=== PATIENT | female | born 1935 | race Caucasian/White ===

== ENCOUNTER 2017-08-08 22:41 | Inpatient (IN) ==
[2017-08-08] MEDS ORDERED: ALBUTEROL/IPRATROPIUM 2.5mg-0.5mg/3ml NEB AEROSOL ONE (23:11)
[2017-08-08] MEDS ORDERED: FAMOTIDINE PB 20 MG/50 ML BAG IV ONE (23:11)
--- NOTE | 2017-08-08 23:32 | Emergency Department Report ---
URI/Sore Throat HPI - General Chief Complaint: Nausea/Vomiting/Diarrhea Stated Complaint: Nausea Time Seen by Provider: 08/08/17 23:00 Source: patient Mode of arrival: EMS Limitations: no limitations - History of Present Illness HPI Narrative: Pt presents with a complaint of weakness, abd pain and a cough. Pt saw her PCP on after she developed a cough and was started on Keflex she gives a lengthy history of being concerned about abdominal pain being related to how long she had steeped her tea when taking tylenol. She states she has not had vomiting or diarrhea since but has been feeling progressively worse, she stopped taking both the Keflex and the Tesselon Pearles she was ordered. She reports a fever but never actually took her temperature. Her primary complaint at this time is cough and chest pain MD Complaint: fever, cough, other (abd pain) Duration: constant Severity: severe Severity scale (1-10): >10 Relieving factors: nothing Able to tolerate fluids by mouth: Yes Associated symptoms: fever, chills, cough, chest pain, shortness of breath, abdominal pain, nausea, vomiting, diarrhea - Related Data Home Medications Medication Instructions Recorded Confirmed Ascorbic Acid (Vitamin C) 2,000 mg PO DAILY #0 09/25/13 08/09/17 Bromelains (Bromelain) 500 mg PO DAILY #0 09/25/13 08/09/17 Calcium Carbonate [Calcium] 600 mg PO DAILY #0 09/25/13 08/09/17 ELDERBERRY 400 mg PO DAILY #0 09/25/13 08/09/17 Magnesium Oxide [Magnesium] 250 mg PO DAILY #0 09/25/13 08/09/17 Methylsulfonylmethane (Msm) 1,000 mg PO DAILY #0 09/25/13 08/09/17 Multivitamins (Multivitamin) 1 tab PO DAILY #0 09/25/13 08/09/17 [place]-3 Fatty Acids [[place]-3] 1,000 mg PO DAILY #0 09/25/13 08/09/17 VISION ESSENTIALS 1 tab PO BID #0 09/25/13 08/09/17 Vit B Complex No.10/Folic Acid 400 mcg PO DAILY #0 09/25/13 08/09/17 (B-Complex 100 Tablet Sa) Previous Rx's Medication Instructions Recorded Keflex (cephalexin) 500 mg capsule 500 mg PO TID 10 Days #30 cap 08/05/17 Tessalon Perles (Benzonatate) 100 100 mg PO TID PRN #30 cap 08/05/17 mg capsule Allergies Allergy/AdvReac Type Severity Reaction Status Date / Time levofloxacin Allergy Intermediate NAUSEA, Verified 08/08/17 22:52 VOMITTING, WEAKNESS metronidazole Allergy Intermediate NAUSEA,VOMI Verified 08/08/17 22:52 TTING,WEAKN ESS tramadol AdvReac Intermediate MALAISE Verified 08/08/17 22:52 PENICILLIN Allergy Intermediate NAUSEA,VOMI Uncoded 08/08/17 22:52 TTING,WEAKN ESS Review of Systems All systems: reviewed and negative except as stated Constitutional: Reports: as per HPI Cardiovascular: Reports: as per HPI Respiratory: Reports: as per HPI Gastrointestinal: Reports: as per HPI [facility] Medical History (Last Reviewed 08/05/17 @ 15:16 by PATRICIA Méndze) Arthritis (Chronic Medical) Asthma (Chronic Medical) Breast cancer (Resolved Medical) Pneumonia (Resolved Medical) Polio (Resolved Medical) Surgical History: D and C 1992. Lumpectomy 1992 r/t breast CA Family History: Family History (Last Reviewed 08/05/17 @ 15:16 by PATRICIA Méndez) Mother Cancer Father Atrial fibrillation - Social History Smoking status: Never smoker Physical Exam - Limitations Limitations: no limitations - General General appearance: in no apparent distress - Normal Exams: Head:: Normocephalic without trauma Eyes:: Pupils are PERRLA w/ EOMI Neck:: Full range of motion, without adenopathy Cardiovascular:: Regular rate and rhythm, without murmur or gallop, Pulses 2+ all extremities, capillary refill, <2 seconds all extremities Abdomen:: Bowel sounds positive, soft, non-tender, non-distended Musculoskeletal:: No tenderness, or deformity noted, good range of motion, all extremities Integumentary:: No rashes Neurological:: Patient is alert, and oriented, cranial nerves, motor/sensory/ cerebellar, exams w/o gross deficits, to observation - Respiratory Respiratory exam: Absent: respiratory distress, accessory muscle use - Expanded Respiratory Exam Location: Right: decreased breath sounds, Lower: decreased breath sounds Course Vital Signs Temperature 100.2 F 08/08/17 22:41 Pulse Rate 103 H 08/08/17 22:41 Respiratory Rate 20 08/08/17 22:41 Blood Pressure 150/72 H 08/08/17 22:41 Pulse Oximetry 87 L 08/08/17 22:41 Temperature 100.2 F 08/08/17 22:41 Pulse Rate 116 H 08/09/17 00:00 Respiratory Rate 20 08/09/17 00:00 Blood Pressure 150/62 H 08/09/17 00:00 Pulse Oximetry 93 08/09/17 00:00 Upper Respiratory Infection - MDM Narrative Medical decision making narrative: Lab and xray reviewed and consistent with bibasilar pneumonia. Pt given a duobneb treatment, IV pepcid, and started on IV antibiotics. Dr Gomes contacted for admission. Pt admitted inpatient to medical for further treatment - Differential Diagnosis Differential diagnosis: Likely: upper respiratory infection, viral infection, influenza (pneumonia) - Lab Data Attestation: I reviewed the patient's lab results. Result diagrams: 08/08/17 23:29 08/08/17 23:29 Lab Results 08/08/17 08/08/17 08/08/17 Range/Units 23:29 23:29 23:29 WBC 10.2 (4.5-11.0) T/MM3 RBC 4.76 (4.00-5.20) M/MM3 Hgb 13.9 (12-16) GM/DL Hct 42.0 (36-46) % MCV 88.2 (80-100) UM3 MCH 29.2 (26-34) UUG MCHC 33.1 (31-37) GM/DL RDW Std Deviation 41.9 (36.9-50.2) FL Plt Count 160 (130-400) T/MM3 MPV 11.0 (9.4-12.4) UM3 Immature Gran % (Auto) Not performed Neut % (Auto) Not performed Lymph % (Auto) Not performed Dade % (Auto) Not performed Eos % (Auto) Not performed Baso % (Auto) Not performed Neut # (Auto) Not performed Lymph # (Auto) Not performed Dade # (Auto) Not performed Eos # (Auto) Not performed Baso # (Auto) Not performed Abs Immat Gran (auto) Not performed Neutrophils % (Manual) 85.0 H (33-66) % Band Neutrophils % 3.0 (0-6) % Lymphocytes % (Manual) 5.0 L (23-45) % Monocytes % (Manual) 7.0 (0-9.0) % Neutrophils # (Manual) 8.7 H (1.8-7.7) T/MM3 Band Neutrophils # 0.3 T/MM3 Lymphocytes # (Manual) 0.5 L (1-4.8) T/MM3 Monocytes # (Manual) 0.7 (0-0.8) T/MM3 RBC Morph Comment Normal Turbidity < 20 (0-20) Sodium 132 L (134-144) MEQ/L Potassium 3.5 L (3.6-5) MEQ/L Chloride 98 (98-107) MEQ/L Carbon Dioxide 25 (22-30) MEQ/L Anion Gap 9 (5-15) MEQ/L BUN 8.0 (7-17) MG/DL Creatinine 0.5 L (0.7-1.2) MG/DL GFR Calculation 118 BUN/Creatinine Ratio 16 (6-26) RATIO Glucose 137 H (65-110) MG/DL Calculated Osmolality 255 L (261-280) MOSM/KG Calcium 8.5 (8.4-10.2) MG/DL Total Bilirubin 1.00 (0.20-1.30) MG/DL Icterus Index < 2 (0-7) AST 51 H (14-36) U/L ALT 45 (9-52) U/L Alkaline Phosphatase 101 (38-126) U/L Troponin I < 0.012 (0-0.12) ng/ml Total Protein 6.9 (6.3-8.2) G/DL Albumin 3.5 (3.5-5.0) G/DL Globulin 3.4 (2.4-3.6) G/DL Albumin/Globulin Ratio 1.0 L (1.1-2.2) RATIO Specimen Hemolysis 29 H 31 H (0-25) - Radiology Data Attestation: I reviewed the patient's radiology results. (read per Dr Acevedo) Disposition Clinical Impression: Community acquired pneumonia Qualifiers: Laterality: right Lung location: lower lobe of lung Qualified Code(s): J18.1 - Lobar pneumonia, unspecified organism Disposition: 02 To [facility] Acute Care Condition: Improved Prescriptions: No Action Bromelains (Bromelain) 500 mg PO DAILY #0 Multivitamins (Multivitamin) 1 tab PO DAILY #0 ELDERBERRY 400 mg PO DAILY #0 VISION ESSENTIALS 1 tab PO BID #0 Ascorbic Acid (Vitamin C) 2,000 mg PO DAILY #0 Calcium Carbonate [Calcium] 600 mg PO DAILY #0 Magnesium Oxide [Magnesium] 250 mg PO DAILY #0 Vit B Complex No.10/Folic Acid (B-Complex 100 Tablet Sa) 400 mcg PO DAILY #0 Methylsulfonylmethane (Msm) 1,000 mg PO DAILY #0 [place]-3 Fatty Acids [[place]-3] 1,000 mg PO DAILY #0 Keflex (cephalexin) 500 mg capsule 500 mg PO TID 10 Days #30 cap Tessalon Perles (Benzonatate) 100 mg capsule 100 mg PO TID PRN #30 cap PRN Reason: cough Referrals: Torin Arrieta DO [Family Provider] - Time of Disposition: 00:52 - Seen By: midlevel
[2017-08-08] MEDS: SALINE FLUSH 10ml SYRINGE IVF PRN (23:35)
[2017-08-09] MEDS ORDERED: CEFTRIAXONE (ER USE ONLY) 1 GM in NS 100 ML IV ONE (00:53)
[2017-08-09] MEDS ORDERED: AZITHROMYCIN IV 500 MG in NS 250ml 250 ML IV SCH (01:34)
[2017-08-09 01:54] VITALS: BMI 21.1
[2017-08-09] MEDS: NS 1,000 ML IV SCH ×2 (02:11→17:35)
[2017-08-09] MEDS: IBUPROFEN 400 MG TABLET PO PRN ×2 (03:03→18:46)
--- NOTE | 2017-08-09 03:19 | History & Physical Report ---
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 Patient was seen by her PCP this past and placed on Keflex and Tessalon perles for suspected bronchitis. She then noted some nausea and diarrhea and stopped the keflex. Her cough and malaise and generalized weakness continued to worsen so she came to the ER. Patient has had a poor appetite and intake over the past several days. Patient denies chest pain other than the pleuritic pain associated w/ coughing; denies shortness of air or increased work of breathing; she denies AG, and denies change in bladder function and denies melena and BRBPR. In ER, patient had a CXR and noted to have a RLL infiltrate c/w pneumonia. Patient started on Rocephin and Azithromycin. Patient also rec'd IV Pepcid and IVFs and a DuoNeb treatment in the ER. Patient's WBC = 10.2, Na is 132 and potassium = 3.5. Patient's troponin reported as 0. Patient febrile in ER at 100.2F Patient to be admitted to the Hospitalist service for further evaluation and management with the diagnosis of RLL Pneumonia. Review of Systems All systems PM: 10-point ROS was reviewed, no additional remarkable complaints except PFSH Patient Stated Medical History Asthma Yes: Thinks she's outgrown it Pneumonia Yes Gastroesophageal Reflux Yes Disease Hx Urinary Tract Infection Yes Osteoarthritis Yes Other Musculoskeletal Yes: left leg pain due to polio 1947 Chemotherapy Yes: breast cancer 1984 Clinic Medical History (Last Reviewed 08/05/17 @ 15:16 by PATRICIA Méndez) Community acquired pneumonia (Acute Medical) Arthritis (Chronic Medical) Asthma (Chronic Medical) Breast cancer (Resolved Medical) Pneumonia (Resolved Medical) Polio (Resolved Medical) Surgical History: D and C 1992. Lumpectomy 1992 r/t breast CA Family History: Family History (Last Reviewed 08/05/17 @ 15:16 by PATRICIA Méndez) Mother Cancer Father Atrial fibrillation - Social History Smoking status: Never smoker Medications Home Medications Medication Instructions Recorded Confirmed Type Ascorbic Acid (Vitamin C) 2,000 mg PO DAILY #0 09/25/13 08/09/17 History Bromelains (Bromelain) 500 mg PO DAILY #0 09/25/13 08/09/17 History Calcium Carbonate [Calcium] 600 mg PO DAILY #0 09/25/13 08/09/17 History ELDERBERRY 400 mg PO DAILY #0 09/25/13 08/09/17 History Magnesium Oxide [Magnesium] 250 mg PO DAILY #0 09/25/13 08/09/17 History Methylsulfonylmethane (Msm) 1,000 mg PO DAILY #0 09/25/13 08/09/17 History Multivitamins (Multivitamin) 1 tab PO DAILY #0 09/25/13 08/09/17 History [place]-3 Fatty Acids [[place]-3] 1,000 mg PO DAILY #0 09/25/13 08/09/17 History VISION ESSENTIALS 1 tab PO BID #0 09/25/13 08/09/17 History Vit B Complex No.10/Folic Acid 400 mcg PO DAILY #0 09/25/13 08/09/17 History (B-Complex 100 Tablet Sa) Allergies Allergy/AdvReac Type Severity Reaction Status Date / Time levofloxacin Allergy Intermediate NAUSEA, Verified 08/08/17 22:52 VOMITTING, WEAKNESS metronidazole Allergy Intermediate NAUSEA,VOMI Verified 08/08/17 22:52 TTING,WEAKN ESS cephalexin [From Keflex] AdvReac Severe upset Verified 08/09/17 09:11 stomach tramadol AdvReac Intermediate MALAISE Verified 08/08/17 22:52 PENICILLIN Allergy Intermediate NAUSEA,VOMI Uncoded 08/08/17 22:52 TTING,WEAKN ESS Exam Vital Signs: Temperature 98.5 F 08/09/17 01:41 Pulse Rate 106 H 08/09/17 01:41 Respiratory Rate 24 08/09/17 01:41 Blood Pressure 154/68 H 08/09/17 01:41 Pulse Oximetry 91 08/09/17 01:41 Height/Weight/BMI: Height 1.63 m Weight 55.8 kg Body Mass Index 21.1 - Constitutional Present: no acute distress, well nourished, well developed Comments: Appears tired, mildly ill - Routine HEENT Exam Head: Present: normocephalic, atraumatic Eye: Present: EOMI, PERRL. Absent: conjunctival icterus, scleral injection ENT: Present: mucous membranes dry - Routine Neck Exam Present: supple, full ROM. Absent: JVD - Routine Respiratory Exam Present: rales, rhonchi. Absent: accessory muscle use, dyspnea, prolonged expiratory phase, respiratory distress, stridor, wheezes Comments: Patient has RLL rales and rhonchi; good effort and symmetrical chest rise; deep breathing did elicit coughing episodes which resulted in chest wall discomfort, especially on the right side of the rib cage - Routine Cardiovascular Exam Present: RRR, S1, S2 - Routine Abdominal Exam Present: soft, normoactive bowel sounds, non distended, non tender - Routine Extremities Exam Absent: cyanosis, clubbing, edema - Routine Neurological Exam Present: alert, oriented X3 - Routine Psychiatric Exam Present: normal affect, normal thought process, cooperative, good insight, good judgment Results - Labs CBC & Chem 7: 08/09/17 06:52 08/09/17 06:52 Assessment and Plan Assessment and Plan: Assessment 1) Acute RLL Pneumonia 2) Acute Dehydration w/ decreased appetite and po intake 3) Acute Mild Hyponatremia 4) Acute Pleuritic chest wall pain w/ coughing 5) H/o Asthma - remote history - has been asymptomatic 6) Osteoarthritis 7) Post-polio syndrome left LE 8) GERD 9) H/o Breast Ca 10) H/o Pneumonia Plan: Admit to Hospitalist service Rocephin and Azithromycin Neb Albuterol q 4 hours prn Tussionex 5mL po q 12 hours prn Protonix 40mg po once daily ac breakfast Labs in AM Regular diet SCDs IVfs that of NS at 75 cc/hour Blood Cx pending Sputum culture ordered - pending prn acetaminophen and ibuprofen as directed Supportive care Hold home meds - vitamin and other supplements Continuous Pulse Oximetry I discussed the plan of care w/ Yumi and she verbalized understanding. Her daughter Marshall provided supplemental history. Dr. Gomes's note reviewed. Mrs. Mora interviewed and examined. CC: Feels awful, cough HPI: Mrs. Mora is an 81-year-old female with one-week history of cough with minimal sputum production accompanied by pleuritic pain, low-grade fever and intermittent chills. She reports sweats last night after presenting to the hospital but had not had sweats prior to that time. She denies having dyspnea. She was seen by Dr. Arrieta 4 days prior to admission and started on Keflex and Tessalon Perles for probable bronchitis but subsequently developed severe burning in her stomach and headache and discontinued medications 2 days ago. Patient additionally reports developing severe diarrhea one day after starting antibiotics but thinks it may have been from taking Tylenol on an empty stomach during the middle of the night. Her daughter reports that GI symptoms were starting prior to initiating antibiotics. The patient denies hemoptysis and reports that the minor amount of sputum she has been coughing up has been clear or slightly milky in color. Due to ongoing symptoms she presented to the emergency room yesterday day evening her temperature was 100.2, oxygen saturation 87% on 2 L O2, and chest x-ray revealed bilateral lower lobe infiltrates. She was admitted for further management due to failed outpatient therapy and hypoxia. PH/SH/FH: agree with that recorded above with additional history of post polio syndrome. FH-mother of multiple myeloma, 3 sisters and paternal grandfather had atrial fibrillation in addition to her father, father and grandfather also had coronary artery disease. SH-no history alcohol, tobacco, or illicit drug use. Patient has a DO NOT RESUSCITATE order and her daughter Marshall has DPOA. ROS: 10 point review completed with patient/daughter describing left leg pain chronically which is increased in the past week with the patient has been sitting primarily. Pain starts in the posterior left hip and radiates down the lateral left leg into the calf area there is occasional numbness but not consistently. Patient reports her left leg is generally weaker than the right and that pain is severe when she stands still and better when she moves around. 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 She denied any difficulty using her hands/ legs at the time and the visual symptoms lasted only a brief period of time. Remainder of ROS is negative or as per history of present illness EXAM: General-NAD, alert, cooperative; 96.7, 84, 93% on 3 L HEENT-PERRL, EOMI without nystagmus, conjunctiva clear, sclera anicteric, conjugate gaze, facial structures symmetric, oropharynx clear, neck supple and without adenopathy Lungs-respirations nonlabored, fair airflow, faint crackles at the right base, no wheezing Cardiac-regular rhythm, S1 and S2 Abd-soft, nontender, without palpable mass, bowel sounds present Ext-without edema or clubbing Skin-without generalized rash or wounds Musculoskeletal-minor tenderness to palpation over the left greater trochanter Neuro-cranial nerves 3-12 intact, sensation intact to light touch 4 extremities , normal motor tone, no tremor present, proximal/distal power grossly normal upper and lower extremities bilaterally-I don't detect left lower extremity weakness at this time. Psych-calm, cooperative DATA: Chest x-ray reviewed by myself demonstrating probable left lower lobe infiltrate, questionable left basilar infiltrate versus atelectasis. WBC 10.9 with 7% bands; sodium 132-137, creatinine 0.6, liver enzymes unremarkable other than AST 51 A/P: RLL pneumonia Dehydration, diarrhea [employer] Pleuritic chest pain Hyponatremia, POA-resolved, c/w dehydration LLE radicular pain Postpolio syndrome Osteoarthritis h/o breast cancer and asthma, GERD Continue Rocephin/azithromycin initiated for community-acquired pneumonia. Azithromycin converted to oral administration. Sputum culture/blood cultures pending. Check respiratory viral panel. Continue IV fluids initiated overnight. Tolerating regular diet this morning. Plain films lumbar spine, PT/OT consult. DO NOT RESUSCITATE order confirmed with DPOA, status clarified in medical chart. Patient will return to the care of Dr. Arrieta when medically stabilized. All records reviewed. DVT Prophylaxis: SCD's GI Prophylaxis: Protonix Resuscitation Status: Full Code Hospital Course Summary Disclaimer: The visit summary below is not to be considered part of the above Progress Note. Hospital Course: 08/09/17 Admitted with pneumonia which failed outpatient therapy. Continue Rocephin/azithromycin initiated for community-acquired pneumonia. Azithromycin converted to oral administration. Sputum culture/blood cultures pending. Check respiratory viral panel. Continue IV fluids initiated overnight. Tolerating regular diet this morning. Plain films lumbar spine, PT/OT consult. DO NOT RESUSCITATE order confirmed with DPOA, status clarified in medical chart. Patient will return to the care of Dr. Arrieta when medically stabilized.
[2017-08-09] MEDS: PANTOPRAZOLE 40 MG TABLET PO SCH (07:34)
--- NOTE | 2017-08-09 08:19 | XRay Report ---
Indication: cough PROCEDURE: XR chest 1V: Encounter: Initial Comparison: 09/25/2013 Findings: Is bibasilar inferomedial opacity without definite pleural effusion. Heart size is normal. There is moderate overlying EKG lead artifact and other tube artifact. No subdiaphragmatic free air. There is minimal scoliosis of the thoracolumbar spine. Impression: Bibasilar inferomedial pulmonary opacity possibly representing atelectasis and/or pneumonia. Follow-up to resolution is recommended to exclude underlying neoplasm. .
[2017-08-09] MEDS: ACETAMINOPHEN 325 MG TABLET PO PRN (09:39)
[2017-08-09] MEDS: CALCIUM CARBONATE 600 MG TABLET PO SCH (09:41)
[2017-08-09] MEDS: ALBUTEROL 2.5mg/3ml (0.083%) NEB AEROSOL PRN ×3 (09:59→20:37)
[2017-08-09] MEDS: CEFTRIAXONE 1 G in NS 100 ML IV SCH (12:19)
[2017-08-09] MEDS ORDERED: INFLUENZA VAC High Dose 2017-18 (Fluzone HD*) (>=65yo) 0.5ml IM ONE (13:10)
[2017-08-09] MEDS ORDERED: PNEUMOCOCCAL 13 VACCINE 0.5ml INJECTION IM ONE (13:12)
--- NOTE | 2017-08-09 15:31 | XRay Report ---
Indication: left radicular pain, post polio syndrome PROCEDURE: XR lumbar spine 2-3V: Encounter: Initial Comparison: None. Findings: There is moderate S-shaped scoliotic deformity of the thoracolumbar spine with levo convexity of the thoracolumbar junction. There is moderate degenerative disc disease at multiple levels. The vertebral body heights and the alignments appear relatively well-preserved. No soft tissue mass or abnormal calcification. Impression: Moderate degenerative disc disease and moderate scoliosis. No definite acute fracture or subluxation. .
[2017-08-10] MEDS: ACETAMINOPHEN 325 MG TABLET PO PRN (00:53)
[2017-08-10] MEDS: PANTOPRAZOLE 40 MG TABLET PO SCH (06:03)
[2017-08-10] MEDS: NS 1,000 ML IV SCH (06:03)
[2017-08-10] MEDS: AZITHROMYCIN 250 MG TABLET PO SCH (06:03)
[2017-08-10] MEDS: IBUPROFEN 400 MG TABLET PO PRN (07:08)
[2017-08-10] MEDS ORDERED: AZITHROMYCIN IV 500 MG in NS 250ml 250 ML IV SCH (09:00)
[2017-08-10] MEDS: CALCIUM CARBONATE 600 MG TABLET PO SCH (09:07)
[2017-08-10] MEDS: CEFTRIAXONE 1 G in NS 100 ML IV SCH (09:07)
--- NOTE | 2017-08-10 14:03 | Progress Note ---
<Sharyn Narayanan - Last Filed: 08/10/17 15:17> - Date 08/10/17 Subjective: Patient is seen in her room today. She has family present. She feels she is doing better. She has been up to walk with therapy and felt very fatigued after that. She has been weaned off her O2. Mild dyspnea. Coughing spells - usually at night. No fever or chills. Curious about her xray results in re: to her L leg pain. Objective Vital signs: Temperature 96.0 F L 08/10/17 12:06 Pulse Rate 78 08/10/17 12:06 Respiratory Rate 20 08/10/17 12:06 Blood Pressure 146/71 H 08/10/17 12:06 Pulse Oximetry 96 08/10/17 12:06 Height/Weight/BMI: Height 1.63 m Weight 59.3 kg Body Mass Index 21.1 - Constitutional Present: no acute distress, well nourished, well developed - Routine Respiratory Exam Comments: Mostly clear, few coarse sounds heard RML and RLL. - Routine Cardiovascular Exam Present: RRR. Absent: murmur - Routine Abdominal Exam Present: soft, normoactive bowel sounds, non distended. Absent: tenderness - Routine Extremities Exam Present: no edema, normal capillary refill - Routine Skin Exam Present: dry, warm - Routine Neurological Exam Present: alert, oriented X3 - Routine Lymphatic Exam Lymphatic: Absent: adenopathy - Routine Psychiatric Exam Present: normal affect, cooperative Results - Labs CBC & Chem 7: 08/10/17 05:15 08/10/17 05:15 Labs: Laboratory Tests 08/10/17 09:39 Influenza Type B (PCR) Detected Microbiology Results: Microbiology 08/09/17 02:51 Sputum, Expectorated Gram Stain - Final 08/09/17 02:51 Sputum, Expectorated Sputum Culture - Preliminary Normal Respiratory Ruba Present - Imaging and Cardiology lumbar spine Additional comments: Date of Exam: 08/09/17 Indication: left radicular pain, post polio syndrome PROCEDURE: XR lumbar spine 2-3V: Findings: There is moderate S-shaped scoliotic deformity of the thoracolumbar spine with levo convexity of the thoracolumbar junction. There is moderate degenerative disc disease at multiple levels. The vertebral body heights and the alignments appear relatively well-preserved. No soft tissue mass or abnormal calcification. Impression: Moderate degenerative disc disease and moderate scoliosis. No definite acute fracture or subluxation. 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 She declines Tamiflu as she has significant s.e.'s (GI) to most meds. Continue Azithromycin and consider DC of Rocephin. Repeat CXR tomorrow. Sputum culture - prelim shows normal respiratory ruba. Blood cultures pending. KCl 40 mEq given x 1 for hypokalemia. BMP tomorrow. Reviewed lumbar spine xray. Recommend OP PT and f-u with Dr. Arrieta. DO NOT RESUSCITATE order confirmed with DPOA, status clarified in medical chart. Patient will return to the care of Dr. Arrieta when medically stabilized. Hospital Course Summary Disclaimer: The visit summary below is not to be considered part of the above Progress Note. Hospital Course: 08/09/17 Admitted with pneumonia which failed outpatient therapy. Continue Rocephin/azithromycin initiated for community-acquired pneumonia. Azithromycin converted to oral administration. Sputum culture/blood cultures pending. Check respiratory viral panel. Continue IV fluids initiated overnight. Tolerating regular diet this morning. Plain films lumbar spine, PT/OT consult. DO NOT RESUSCITATE order confirmed with DPOA, status clarified in medical chart. Patient will return to the care of Dr. Arrieta when medically stabilized. 08/10/17 + influenza B. Discussed Tamiflu treatment with patient. She declines Tamiflu as she has significant s.e.'s (GI) to most meds. Continue Azithromycin and consider DC of Rocephin. Sputum culture - prelim shows normal respiratory ruba. Blood cultures pending. KCl 40 mEq given x 1 for hypokalemia. Reviewed lumbar spine xray. Recommend OP PT and f-u with Dr. Arrieta. DO NOT RESUSCITATE order confirmed with DPOA, status clarified in medical chart. Patient will return to the care of Dr. Arrieta when medically stabilized. <Maile Mendes - Last Filed: 08/10/17 18:41> - Date 12/05/17 Objective Vital signs: Results - Labs CBC & Chem 7: 08/10/17 05:15 08/10/17 05:15 Microbiology Results: Microbiology 08/09/17 02:51 Sputum, Expectorated Gram Stain - Final 08/09/17 02:51 Sputum, Expectorated Sputum Culture - Preliminary Normal Respiratory Ruba Present Assessment and Plan Assessment and Plan: I have independently evaluated and examined this patient. I reviewed the chart, the patient's history, and the SWEEPER BRUSH MAKER MACHINE/PA's documented findings as above. We discussed and formulated the assessment and plan as above with additions as below: Mrs. Mora was seen with multiple family members at bedside. She continues to have occasional cough, often coming in spells with minimal sputum production. She reports that she was only able to cough up a little thin liquid yesterday for them to send to the lab. Her weakness has improved and she feels like she is walking better already (ambulated 300 feet with PT today). Denies significant myalgias/arthralgias or high-grade fevers prior to admission. NAD, alert Respirations nonlabored, good airflow but inspiration triggers repetitive cough , right basilar crackles LS-spine films reviewed with patient and family-mild scoliosis and DDD especially at L3-L4 Influenza B positive although clinical course is not highly suspicious for influenza, will obtain confirmatory testing. Discussed rationale for use of Tamiflu in hospitalized patient. Continue current antibiotics pending 48 hour blood cultures. Doing well. DVT Prophylaxis: SCD's Resuscitation Status: Do Not Resuscitate Hospital Course Summary Disclaimer: The visit summary below is not to be considered part of the above Progress Note.
[2017-08-10] MEDS: ALBUTEROL 2.5mg/3ml (0.083%) NEB AEROSOL SCH ×2 (15:02→19:25)
[2017-08-10] MEDS ORDERED: MENTHOL COUGH DROPS (RICOLA) MM PRN (16:47)
[2017-08-11] MEDS: IBUPROFEN 400 MG TABLET PO PRN (03:54)
[2017-08-11] MEDS: PANTOPRAZOLE 40 MG TABLET PO SCH (05:59)
[2017-08-11] MEDS: AZITHROMYCIN 250 MG TABLET PO SCH (05:59)
[2017-08-11] MEDS: SALINE FLUSH 10ml SYRINGE IVF PRN ×2 (05:59→21:25)
[2017-08-11] MEDS: ALBUTEROL 2.5mg/3ml (0.083%) NEB AEROSOL SCH ×3 (07:37→19:18)
--- NOTE | 2017-08-11 09:07 | XRay Report ---
INDICATION: influenza, pneumonia PROCEDURE: CHEST 2-VIEWS UPRIGHT (PA & LAT) Encounter: Initial COMPARISON: August 08, 2017 FINDINGS: Airspace consolidation in the right lower lobe is not significantly changed. Emphysema. Small pleural effusions, right greater than left. No pneumothorax. Heart size and mediastinal contours are stable. Pulmonary vascularity is unchanged. Impression: Continued evidence of a right lower lobe pneumonia or aspiration. No significant change. .
[2017-08-11] MEDS: CALCIUM CARBONATE 600 MG TABLET PO SCH (09:26)
[2017-08-11] MEDS: ACETAMINOPHEN 325 MG TABLET PO PRN ×2 (09:26→21:24)
[2017-08-11] MEDS: CEFTRIAXONE 1 G in NS 100 ML IV SCH (10:30)
--- NOTE | 2017-08-11 13:43 | Progress Note ---
<Sharyn Narayanan L - Last Filed: 08/11/17 13:40> - Date 08/11/17 Subjective: Patient seen in follow-up of influenza. She states she feels "rotten" today. She had a good day yesterday but today feels exhausted and much worse. No n/v. She wonders if her sxs are r/t to Tamiflu. She typically doesn't tolerate medications very well and thinks this could be the cause of how she feels today. She would prefer not to take anymore Tamiflu. She took a walk in the halls last evening and states she felt that wore her out as well. She is not complaining of a fever or chills. No chest pain, but is requiring a small amount of oxygen again today, whereas she was not requiring oxygen yesterday. Appetite is fair. She is complaining of some pain in her left leg again today. Tylenol seems to help. Objective Vital signs: Temperature 96.5 F L 08/11/17 12:23 Pulse Rate 86 08/11/17 12:23 Respiratory Rate 18 08/11/17 12:23 Blood Pressure 140/69 H 08/11/17 12:23 Pulse Oximetry 93 08/11/17 12:23 Height/Weight/BMI: Height 1.63 m Weight 57.9 kg Body Mass Index 21.1 - Constitutional Present: no acute distress, well nourished, well developed - Routine HEENT Exam Head: Present: normocephalic - Routine Respiratory Exam Present: decreased breath sounds (right lower lobe), CTA bilaterally. Absent: wheezes - Routine Cardiovascular Exam Present: RRR. Absent: murmur - Routine Abdominal Exam Present: soft, normoactive bowel sounds, non distended. Absent: tenderness - Routine Extremities Exam Present: no edema, normal capillary refill - Routine Skin Exam Present: dry, warm - Routine Neurological Exam Present: alert, oriented X3 - Routine Lymphatic Exam Lymphatic: Absent: adenopathy - Routine Psychiatric Exam Present: normal affect, cooperative Results - Labs CBC & Chem 7: 08/10/17 05:15 08/11/17 04:12 Labs: Repeat influenza testing confirmed positive influenza B Microbiology Results: Microbiology 08/09/17 02:51 Sputum, Expectorated Gram Stain - Final 08/09/17 02:51 Sputum, Expectorated Sputum Culture - Preliminary Normal Respiratory Ruba Present - Imaging and Cardiology Chest x-ray Additional comments: 08/11/17 Impression: Continued evidence of a right lower lobe pneumonia or aspiration. No significant change. 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 Given her mindset that she is going to have adverse effects from medication, the benefit of Tamiflu will likely not outweigh the risk at this time. Continue Azithromycin and consider DC of Rocephin. 48 hour blood culture negative. Given the patient feels weaker today and is back on oxygen, will have her continue to work with PT and monitor oxygen levels. Repeat labs in a.m. Hopefully DC home tomorrow. Hospital Course Summary Disclaimer: The visit summary below is not to be considered part of the above Progress Note. Hospital Course: 08/09/17 Admitted with pneumonia which failed outpatient therapy. Continue Rocephin/azithromycin initiated for community-acquired pneumonia. Azithromycin converted to oral administration. Sputum culture/blood cultures pending. Check respiratory viral panel. Continue IV fluids initiated overnight. Tolerating regular diet this morning. Plain films lumbar spine, PT/OT consult. DO NOT RESUSCITATE order confirmed with DPOA, status clarified in medical chart. Patient will return to the care of Dr. Arrieta when medically stabilized. 08/10/17 + influenza B. Discussed Tamiflu treatment with patient. She declines Tamiflu as she has significant s.e.'s (GI) to most meds. Continue Azithromycin and consider DC of Rocephin. Sputum culture - prelim shows normal respiratory ruba. Blood cultures pending. KCl 40 mEq given x 1 for hypokalemia. Reviewed lumbar spine xray. Recommend OP PT and f-u with Dr. Arrieta. DO NOT RESUSCITATE order confirmed with DPOA, status clarified in medical chart. Patient will return to the care of Dr. Arrieta when medically stabilized. 08/11/17 13:53 Patient declines further use of Tamiflu. Given her mindset that she is going to have adverse effects from medication, the benefit of Tamiflu will likely not outweigh the risk at this time. Continue Azithromycin and consider DC of Rocephin. 48 hour blood culture negative. Given the patient feels weaker today and is back on oxygen, will have her continue to work with PT and monitor oxygen levels. Repeat labs in a.m. Hopefully DC home tomorrow. <Maile Mendes - Last Filed: 08/11/17 17:35> - Date 08/11/17 Results - Labs CBC & Chem 7: 08/10/17 05:15 08/11/17 04:12 Assessment and Plan (1) Influenza B Current visit: Yes Status: Acute (2) Influenzal bronchopneumonia Current visit: Yes Status: Acute Assessment and Plan: I have independently evaluated and examined this patient. I reviewed the chart, the patient's history, and the FILTER PRESS TENDER/PA's documented findings as above. We discussed and formulated the assessment and plan as above with additions as below: Mrs. Mora reports that she's worn out today. She describes her heart rate increasing 222 and oxygen decreasing to 87 or 88% overnight (nothing documented ) although supplemental oxygen was initiated at some point overnight and has subsequently been titrated off. She continues to have occasional cough without sputum production. She declines Tamiflu as noted above. Afebrile, drowsy Respirations nonlabored, good airflow, no wheezing, crackles at the left base Regular cardiac rhythm. Ambulatory oximetry was obtained on room air without desaturation, lowest O2 saturation wall ambulating today was 92%. Confirmatory test positive for influenza B. Will obtain overnight oximetry tonight on room air to determine if there is need for home oxygen-history of asthma. Chest x-ray with right lower lobe infiltrate (films reviewed by myself) and small pleural effusions. Consistent with influenza bronchopneumonia. Sputum does not suggest a secondary staph infection. Patient has had Rocephin for 3 days-discontinue but will continue azithromycin as a mucolytic as patient is tolerating this well. Anticipate discharge home tomorrow. DVT Prophylaxis: SCD's Resuscitation Status: Do Not Resuscitate Hospital Course Summary Disclaimer: The visit summary below is not to be considered part of the above Progress Note.
[2017-08-11] MEDS ORDERED: METOCLOPRAMIDE 5mg TABLET PO PRN (18:18)
[2017-08-12] MEDS: HYDROCODONE/CHLORPHENIRAMINE ER ORAL LIQ 5ml PO PRN ×2 (01:39→21:20)
[2017-08-12] MEDS: IBUPROFEN 400 MG TABLET PO PRN (04:36)
[2017-08-12] MEDS: AZITHROMYCIN 250 MG TABLET PO SCH (06:22)
[2017-08-12] MEDS: PANTOPRAZOLE 40 MG TABLET PO SCH (06:23)
[2017-08-12] MEDS: CALCIUM CARBONATE 600 MG TABLET PO SCH (08:15)
[2017-08-12] MEDS: ALBUTEROL 2.5mg/3ml (0.083%) NEB AEROSOL SCH ×3 (09:38→16:22)
[2017-08-12] MEDS: ACETAMINOPHEN 325 MG TABLET PO PRN (11:21)
--- NOTE | 2017-08-12 13:31 | Progress Note ---
<Sharyn Narayanan L - Last Filed: 08/12/17 13:19> - Date 08/12/17 Subjective: Patient is seen today lying in bed. She reports she feels very fatigued. She felt better last evening and was able to walk. After she took Tamiflu, she felt nauseous and exhausted. She is not short of breath. Her overnight oximetry was normal. She doesn't have much of an appetite but she is making herself eat. Her biggest concern is that she feels so fatigued she doesn't feel that she would be able to make it at home with just her 's help. She and her family are interested in looking into IRU. Objective Vital signs: Temperature 96.3 F L 08/12/17 11:22 Pulse Rate 95 08/12/17 11:22 Respiratory Rate 20 08/12/17 11:22 Blood Pressure 122/60 08/12/17 11:22 Pulse Oximetry 94 08/12/17 12:44 Height/Weight/BMI: Height 1.63 m Weight 55.9 kg Body Mass Index 21.1 - Constitutional Present: no acute distress, well nourished, well developed - Routine HEENT Exam Head: Present: normocephalic, atraumatic - Routine Respiratory Exam Present: CTA bilaterally. Absent: wheezes - Routine Cardiovascular Exam Present: RRR. Absent: murmur - Routine Abdominal Exam Present: soft, normoactive bowel sounds, non distended. Absent: tenderness - Routine Extremities Exam Present: no edema, normal capillary refill - Routine Skin Exam Present: dry, warm - Routine Neurological Exam Present: alert, moving all extremities - Routine Lymphatic Exam Lymphatic: Absent: adenopathy - Routine Psychiatric Exam Present: normal affect, cooperative Results - Labs CBC & Chem 7: 08/12/17 04:26 08/12/17 04:26 Microbiology Results: Microbiology 08/09/17 02:51 Sputum, Expectorated Gram Stain - Final 08/09/17 02:51 Sputum, Expectorated Sputum Culture - Preliminary Normal Respiratory Ruba Present Assessment and Plan (1) Influenza B Current visit: Yes Status: Acute (2) Influenzal bronchopneumonia Current visit: Yes Status: Acute Assessment and Plan: Positive influenza B Generalized weakness RLL pneumonia 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 This is likely the main cause of her sxs. Continue Azithromycin. Last day is 08/14. Will have PT/OT work with her for strengthening . IRU screen placed as she doesn 't feel strong enough to make it at home on her own. Overnight oximetry was normal. Will wait to give her flu and pneumonia vaccines until her f-u appointment with her PCP given her current condition. . Hospital Course Summary Disclaimer: The visit summary below is not to be considered part of the above Progress Note. Hospital Course: 08/09/17 Admitted with pneumonia which failed outpatient therapy. Continue Rocephin/azithromycin initiated for community-acquired pneumonia. Azithromycin converted to oral administration. Sputum culture/blood cultures pending. Check respiratory viral panel. Continue IV fluids initiated overnight. Tolerating regular diet this morning. Plain films lumbar spine, PT/OT consult. DO NOT RESUSCITATE order confirmed with DPOA, status clarified in medical chart. Patient will return to the care of Dr. Arrieta when medically stabilized. 08/10/17 + influenza B. Discussed Tamiflu treatment with patient. She declines Tamiflu as she has significant s.e.'s (GI) to most meds. Continue Azithromycin and consider DC of Rocephin. Sputum culture - prelim shows normal respiratory ruba. Blood cultures pending. KCl 40 mEq given x 1 for hypokalemia. Reviewed lumbar spine xray. Recommend OP PT and f-u with Dr. Arrieta. DO NOT RESUSCITATE order confirmed with DPOA, status clarified in medical chart. Patient will return to the care of Dr. Arrieta when medically stabilized. 08/11/17 13:53 Patient declines further use of Tamiflu. Given her mindset that she is going to have adverse effects from medication, the benefit of Tamiflu will likely not outweigh the risk at this time. Continue Azithromycin and consider DC of Rocephin. 48 hour blood culture negative. Given the patient feels weaker today and is back on oxygen, will have her continue to work with PT and monitor oxygen levels. Repeat labs in a.m. Hopefully DC home tomorrow. 08/12/17 13:44 D/C Tamiflu. This is likely the main cause of her sxs. Continue Azithromycin. Last day is 08/14. Will have PT/OT work with her for strengthening . IRU screen placed as she doesn 't feel strong enough to make it at home on her own. Overnight oximetry was normal. Will wait to give her flu and pneumonia vaccines until her f-u appointment with her PCP given her current condition. <Skylar Ramires M - Last Filed: 08/12/17 16:48> - Date 08/12/17 Objective Vital signs: Temperature 96.8 F 08/12/17 15:43 Pulse Rate 93 08/12/17 15:43 Respiratory Rate 18 08/12/17 16:23 Blood Pressure 116/65 08/12/17 15:43 Pulse Oximetry 93 08/12/17 15:43 Height/Weight/BMI: Height 5 ft 4 in Weight 55.9 kg Body Mass Index 21.1 Results - Labs CBC & Chem 7: 08/12/17 04:26 08/12/17 04:26 Microbiology Results: Microbiology 08/09/17 02:51 Sputum, Expectorated Gram Stain - Final 08/09/17 02:51 Sputum, Expectorated Sputum Culture - Final Haemophilus influenzae Normal Respiratory Ruba Assessment and Plan (1) Influenza B Current visit: Yes Status: Acute (2) Influenzal bronchopneumonia Current visit: Yes Status: Acute Assessment and Plan: Patient was seen and examined. Please see above note written by midlevel who saw the patient today. I agree with the assessment and plan. Patient still feels very weak and is hesitant to go home as she hasn't eaten much or been up walking around. She lives at home with her . Yesterday, she had an episode of severe nausea that she felt was due to the antibiotic we gave her. This is improved and she did hold down some breakfast. Gen: Alert and oriented X 3. Appears ill. CV: RRR Lungs: CTAB Ext: no c/c/e Skin; w/d/i. no rash Neuro: no focal signs. GI sxs likely due to tamiflu - stop. continue azithro to finish course. PT/OT pending - possible IRU vs SNU stay if she remains weak tomorrow Hospital Course Summary Disclaimer: The visit summary below is not to be considered part of the above Progress Note.
[2017-08-13] MEDS: ACETAMINOPHEN 325 MG TABLET PO PRN (04:37)
[2017-08-13 04:39] VITALS: TEMP 97.4
[2017-08-13] MEDS: PANTOPRAZOLE 40 MG TABLET PO SCH (06:35)
[2017-08-13] MEDS: AZITHROMYCIN 250 MG TABLET PO SCH (06:35)
[2017-08-13 07:53] VITALS: BP 145/72; PULSE 84
[2017-08-13] MEDS: CALCIUM CARBONATE 600 MG TABLET PO SCH (08:06)
[2017-08-13] MEDS: ALBUTEROL 2.5mg/3ml (0.083%) NEB AEROSOL SCH (09:02)
[2017-08-13 09:12] VITALS: RESP 16; O2SAT 95
[2017-08-13] MEDS ORDERED: FAMOTIDINE 20 MG TABLET PO SCH (09:45)
--- NOTE | 2017-08-13 10:28 | Discharge Summary ---
Discharge Information Date of admission: 08/09/17 01:10 Attending Physician: Skylar Ramires DO Primary care physician: Torin Arrieta DO Consults: 08/12/17 IRU Screening [Inpatient Rehab Screening] [CONS] Routine Screen requested by:: Physician Comment Text:: patient and family would like pt to go to IRU. - Discharge Diagnosis (1) Influenza B Status: Acute (2) Influenzal bronchopneumonia Status: Acute INfluenza B RLL pneumonia Generalized weakness Pleuritic chest pain - improved LLE radicular pain Degenerative disc disease Moderate scoliosis of the thoracolumbar spine Postpolio syndrome Osteoarthritis h/o breast cancer and asthma GERD - Laboratory Labs: 08/12/17 04:26 08/12/17 04:26 - Microbiology Microbiology 08/09/17 02:51 Sputum, Expectorated Gram Stain - Final 08/09/17 02:51 Sputum, Expectorated Sputum Culture - Final Haemophilus influenzae Normal Respiratory Ruba - Radiology Radiology: CXR 08/11/17 Impression: Continued evidence of a right lower lobe pneumonia or aspiration. No significant change. 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 Patient was seen by her PCP this past and placed on Keflex and Tessalon perles for suspected bronchitis. She then noted some nausea and diarrhea and stopped the keflex. Her cough and malaise and generalized weakness continued to worsen so she came to the ER. Patient has had a poor appetite and intake over the past several days. Patient denies chest pain other than the pleuritic pain associated w/ coughing; denies shortness of air or increased work of breathing; she denies AG, and denies change in bladder function and denies melena and BRBPR. In ER, patient had a CXR and noted to have a RLL infiltrate c/w pneumonia. Patient started on Rocephin and Azithromycin. Patient also rec'd IV Pepcid and IVFs and a DuoNeb treatment in the ER. Patient's WBC = 10.2, Na is 132 and potassium = 3.5. Patient's troponin reported as 0. Patient febrile in ER at 100.2F Patient to be admitted to the Hospitalist service for further evaluation and management with the diagnosis of RLL Pneumonia. Objective Vital signs: Temperature 97.4 F 08/13/17 04:00 Pulse Rate 84 08/13/17 07:48 Respiratory Rate 16 08/13/17 09:02 Blood Pressure 145/72 H 08/13/17 07:48 Pulse Oximetry 95 08/13/17 09:02 Height/Weight/BMI: Height 5 ft 4 in Weight 55.8 kg Body Mass Index 21.1 - Constitutional Present: no acute distress - Routine HEENT Exam Head: Present: normocephalic, atraumatic Eye: Present: EOMI, PERRL ENT: Present: mucous membranes moist - Routine Respiratory Exam Present: CTA bilaterally - Routine Cardiovascular Exam Present: RRR - Routine Abdominal Exam Present: soft, non distended, non tender - Routine Extremities Exam Present: no edema - Routine Skin Exam Present: intact, dry, warm - Routine Neurological Exam Present: alert, oriented X3, CN II-XII intact - Routine Psychiatric Exam Present: normal affect Hospital Course This is a general summary of the patient's hospital course. For more details refer to the complete medical record. Hospital course: 08/09/17 Admitted with pneumonia which failed outpatient therapy. Continue Rocephin/azithromycin initiated for community-acquired pneumonia. Azithromycin converted to oral administration. Sputum culture/blood cultures pending. Check respiratory viral panel. Continue IV fluids initiated overnight. Tolerating regular diet this morning. Plain films lumbar spine, PT/OT consult. DO NOT RESUSCITATE order confirmed with DPOA, status clarified in medical chart. Patient will return to the care of Dr. Arrieta when medically stabilized. 08/10/17 + influenza B. Discussed Tamiflu treatment with patient. She declines Tamiflu as she has significant s.e.'s (GI) to most meds. Continue Azithromycin and consider DC of Rocephin. Sputum culture - prelim shows normal respiratory ruba. Blood cultures pending. KCl 40 mEq given x 1 for hypokalemia. Reviewed lumbar spine xray. Recommend OP PT and f-u with Dr. Arrieta. DO NOT RESUSCITATE order confirmed with DPOA, status clarified in medical chart. Patient will return to the care of Dr. Arrieta when medically stabilized. 08/11/17 13:53 Patient declines further use of Tamiflu. Given her mindset that she is going to have adverse effects from medication, the benefit of Tamiflu will likely not outweigh the risk at this time. Continue Azithromycin and consider DC of Rocephin. 48 hour blood culture negative. Given the patient feels weaker today and is back on oxygen, will have her continue to work with PT and monitor oxygen levels. Repeat labs in a.m. Hopefully DC home tomorrow. 08/12/17 13:44 D/C Tamiflu. This is likely the main cause of her sxs. Continue Azithromycin. Last day is 08/14. Will have PT/OT work with her for strengthening . IRU screen placed as she doesn 't feel strong enough to make it at home on her own. Overnight oximetry was normal. Will wait to give her flu and pneumonia vaccines until her f-u appointment with her PCP given her current condition. 08/13/17 Mrs Mora has been doing well other than generalized weakness for at least 2 days. She has been somewhat hesitant to return home due to weakness, but feel more confident today. She has finished azithromycin during her stay for a RLL. Tamiflu was not finished due to GI side effects. I suggest a repeat CXR next week to ensure clearing of her RLL consolidation. Her sputum had normal resp ruba. We will get her Home Health care for assistance at home. Time spent with patient: 25 - 35 minutes DVT Prophylaxis: SCD's GI Prophylaxis: other (diet) Discharge Plan - Discharge Disposition Disposition: 86 Home Health Service *Condition: Improved Reason For Visit (Visit label in EMR): RLL Pneumonia - Discharge Medications *Discharge Medications: Continue Bromelains (Bromelain) 500 mg PO DAILY #0 Multivitamins (Multivitamin) 1 tab PO DAILY #0 ELDERBERRY 400 mg PO DAILY #0 VISION ESSENTIALS 1 tab PO BID #0 Ascorbic Acid (Vitamin C) 2,000 mg PO DAILY #0 Calcium Carbonate [Calcium] 600 mg PO DAILY #0 Magnesium Oxide [Magnesium] 250 mg PO DAILY #0 Vit B Complex No.10/Folic Acid (B-Complex 100 Tablet Sa) 400 mcg PO DAILY #0 Methylsulfonylmethane (Msm) 1,000 mg PO DAILY #0 Dugway-3 Fatty Acids [Dugway-3] 1,000 mg PO DAILY #0 Tessalon Perles (Benzonatate) 100 mg capsule 100 mg PO TID PRN #30 cap PRN Reason: cough - Discharge Packet/Instructions *Diet: General *Activity: As tolerated *Pain Management/Treatment: tylenol and ibuprofen as needed *Wound Care: n/a *Expected Signs/Symptoms: slowly improving weakness and cough *Notify Physician if: fever, difficulty breathing, profound weakness *During Business Hours Contact: Primary Dr. *After Business Hours Contact: Emergency Room *Pending Lab/Results: No Pending Lab - Referrals/Follow Up *Referrals/Follow Up: Torin Arrieta DO [Family Provider] - 1 Week - Patient Handouts Patient Handouts: Pneumonia (GEN), Influenza (GEN)
== END 2017-08-13 14:15 | disposition home health service (06) | DRG 194 ==
LOC: ED 22:41 → MED 08-09 01:10 → SUATTDRO 08-09 01:10 → MED 08-09 01:36
PROVIDERS: ADMIT Internal Medicine; ATTEND Internal Medicine